=== PATIENT | female | born 1960 | race Caucasian/White ===

== ENCOUNTER → 2023-12-25 16:47 | Outpatient (REF) | payer OTHER, SELFPAY | LOC: HWWDC 16:47 | PROVIDERS: ATTENDING PHYSICIAN Nurse Practitioner | DX: Z12.31 Encounter for screening mammogram for malignant neoplasm of breast (principal) | CPT/HCPCS: 77063; 77067 ==

== ENCOUNTER → 2025-03-18 12:18 | Outpatient (REF) | payer OTHER, SELFPAY | LOC: HWWDC 12:18 | DX: Z12.31 Encounter for screening mammogram for malignant neoplasm of breast (principal) | CPT/HCPCS: 77063; 77067 ==

== ENCOUNTER → 2025-05-17 12:50 | Outpatient (REF) | payer OTHER, SELFPAY | LOC: HWRAD 12:50 | DX: T14.8XXA Other injury of unspecified body region, initial encounter (principal) | CPT/HCPCS: 76882 ==

== ENCOUNTER → 2025-07-13 08:48 | Outpatient (REF) | payer BC, SELFPAY | LOC: HWRAD 08:48 | DX: Z13.820 Encounter for screening for osteoporosis (principal) | CPT/HCPCS: 77080 ==

== ENCOUNTER 2025-07-14 06:07 | Day surgery (SDC) | payer BC, SELFPAY ==
[2025-07-14 10:43] VITALS: BMI 26.6
[2025-07-14 10:44] VITALS: BMI 26.6
[2025-07-14 10:45] VITALS: BP 154/83
[2025-07-14] MEDS: TYLENOL 1000 MG PO (10:48)
[2025-07-14] MEDS: NORMOSOL-R/PLASMALYTE-A 1000 IV (10:49)
--- NOTE | 2025-07-14 10:51 | W.SUR.PREOP ---
Pre-Operative Surgical Note
-
I have examined this patient prior to the performance of the scheduled procedure.
The patient's condition is unchanged from the time of the current History and
Physical and the patient is able to undergo the scheduled procedure.
--- NOTE | 2025-07-14 10:51 | HP.FOC2 ---
Focused History & Physical
Chief Complaint
HPI:
Chief Complaint: Right gluteal hematoma
HPI / Indication for Planned Procedure: This is a 64-year-old female who presents with a symptomatic right gluteal hematoma. Will plan for an evacuation of a right gluteal hematoma and scar revision
Relevant Past Medical History: Negative
Relevant Social History: Negative
Relevant Family History: Negative
Relevant Past Surgical History: Negative
Review of Systems
Review of Pertinent Systems: All Systems Negative
Medication
See Medication form for detailed medications: Yes
Medication List (including Herbals & OTC):
Beetroot 4 cap PO DAILY 07/12/25
calcium 1 cap PO DAILY 07/12/25
escitalopram oxalate 10 mg tablet 10 mg PO DAILY 07/12/25
hydrochlorothiazide 25 mg tablet 25 mg PO DAILY 07/12/25
levocetirizine 5 mg tablet (Xyzal) 5 mg PO QPM 07/12/25
lisinopril 40 mg tablet 40 mg PO DAILY 07/12/25
Medications Reviewed: Yes
Allergies and Reactions
Patient has Allergies: No
Noted Allergies and Reactions:
Allergy/AdvReac Type Severity Reaction Status Date / Time
No Known Allergies Allergy Verified 07/14/25 10:40
Pertinent Physical Exam
All Other Systems: Negative
Head/Neck: Normal
Diagnosis / Assessment
This is a 64-year-old female who presents with a right gluteal traumatic hematoma
Plan / Procedure
Will plan for a right gluteal hematoma evacuation and scar revision.
Anesthesia/Sedation to be done by Anesthesia Provider: Yes
[2025-07-14 12:00] VITALS: BP 90/56; BP 93/49
--- NOTE | 2025-07-14 12:11 | W.IMMPOSTOP ---
Surgical Immed Post Op Note
-
Primary Surgeon: Remy Vines MD
Assisting Surgeon: None
Pre-op Diagnosis: Right gluteal hematoma
Post-op Diagnosis: Same
Procedure Performed:
1. Evacuation of a right gluteal hematoma
2. Scar revision
Anesthesia Type: General
Specimen / Cultures: Right gluteal hematoma capsule
Estimated Blood Loss: 3 cc
Complications: None
Operative Findings: After positioning the patient in the left lateral decubitus position an ultrasound was used to localize the gluteal hematoma and gaviota our incision. The right buttocks was then prepped and draped in the usual fashion. A linear
incision was made over the right buttocks over the hematoma and we dissected down to the capsule. A fibrotic capsule with minimal old residual blood in it was identified and removed completely. Part of the capsule was sent for pathology. We then
freed up the overlying soft tissue from the capsule so that the skin would not be tented down. The wound was then closed in layers with 3-0 Vicryl followed by running 4-0 Monocryl suture, followed by Dermabond.
--- NOTE | 2025-07-14 12:14 | OR.RPT ---
Operative Report
Operative Report
Patient Name: Evy Johnson
: 1960
Date of Operation: 07/14/2025
Preoperative Diagnosis: Right gluteal hematoma
Postoperative Diagnosis: Same
Procedure(s):
1. Evacuation of a right gluteal hematoma
2. Scar revision
Surgeon(s):
Dr. Vines
Cord Splicer(s):
None
Anesthesia: MAC
Estimated Blood Loss: 3 cc
Urine Output: None
Drains/Lines/Implants: None
Specimens:
1. Right gluteal hematoma capsule
Indication for surgery:
This is a 64-year-old female who presented to my office with a symptomatic right gluteal hematoma confirmed on ultrasound imaging in the setting of a fall. After evaluation in the office they were diagnosed with a right gluteal hematoma. After
discussion of risk benefits and alternatives they elected and were consented for surgery.
Operative Findings: After positioning the patient in the left lateral decubitus position an ultrasound was used to localize the gluteal hematoma and gaviota our incision. The right buttocks was then prepped and draped in the usual fashion. A linear
incision was made over the right buttocks over the hematoma and we dissected down to the capsule. A fibrotic capsule with minimal old residual blood in it was identified and removed completely. Part of the capsule was sent for pathology. We then
freed up the overlying soft tissue from the capsule so that the skin would not be tented down. The wound was then closed in layers with 3-0 Vicryl followed by running 4-0 Monocryl suture, followed by Dermabond.
Details of the operation:
The patient was brought to the operating room a placed in the left lateral decubitus position. After appropriate sedation by anesthesia, the area of the right buttocks was interrogated with a ultrasound probe and the hematoma capsule was
identified. The area was then prepped and draped in the usual fashion. A linear incision over natural skin line was made over the mass and carried down through the subcutaneous tissue. The hematoma capsule was identified and found to a small
amount of residual blood which was evacuated. The capsule was freed circumferentially taking care to free it particularly from the overlying subcutaneous tissues to the skin would no longer be indented. The wound measured roughly 5 x 5 x 3 cm deep.
The wound was then closed in layers with 3-0 Vicryl sutures followed by a running 4-0 monocryl, followed by dermabond. All counts were correct at the end of procedure. The patient was then transferred to the PACU for recovery.
I was the attending physician and performed the procedure without assistance. I was present for all portions of the case
Remy Vines MD
[2025-07-14 12:15] VITALS: BP 126/68
[2025-07-14 12:30] VITALS: BP 121/75
[2025-07-14 12:45] VITALS: BP 119/83
[2025-07-14 13:00] VITALS: BP 135/66
== END 2025-07-14 13:16 | disposition home or self-care (01) ==
LOC: SDS 06:07
PROVIDERS: ATTENDING PHYSICIAN Surgery
DX: S30.0XXA Contusion of lower back and pelvis, initial encounter (principal); X58.XXXA Exposure to other specified factors, initial encounter; L90.5 Scar conditions and fibrosis of skin
CPT/HCPCS: 10140; 88304